=== PATIENT | male | born 1935 | race African-American/Black ===

== ENCOUNTER 2017-11-12 19:52 | Emergency (ER) | payer MEDICARE, MEDICAID ==
[~2017-11-12] VITALS: Ht 165.1 cm; Wt 70.0 kg
[~2017-11-12 19:52] MED LIST: 1-ME1LIQ PO; ACET325 PO; ALBU0.086 NEB; ALUM5LIQ PO; CALC500 PO; CARB25TA PO; CEFU1TAB18 PO; FERR324T4 PO; MELA3TAB PO; MEMA28CA PO; MILKSUS5 PO; RANI150 PO; SENN187 PO; TRAM50TA PO
[2017-11-12 20:04] VITALS: BP 136/90; PULSE 65; RESP 16; TEMP 97.5; O2SAT 100
--- NOTE | 2017-11-12 20:14 | PD ---
HPI Chief Complaint: Complaint Time Seen by Provider: 20:13 Travel History International Travel<30 days: No Contact w/Intl Traveler<30days: No Traveled to known affect area: No History of Present Illness HPI 82-year-old man with history of dementia, Parkinson's, hypertension, presents emergency department for evaluation of decreased urinary output. Patient has a Escobar catheter in place him per report from detention, he has not had any urinary output today over the course of 12 hours. Patient states he is fine. He reports no pain. He does not understand why he is here. PFSH Past Medical History Arthritis: Yes Cancer: No Dementia: Yes Endocrine: No GERD: Yes Gout: Yes Genitourinary: No Hypertension: Yes Parkinson's Disease: Yes Reproductive: No Respiratory: No Past Surgical History Abdominal Surgery: Yes (RT. INGUINAL HERNIOPLASTY) Other Surgery: Yes Social History Alcohol Use: No Tobacco Use: No Substance Use: No Allergies-Medications (Allergen,Severity, Reaction): Coded Allergies: No Known Allergies (Unverified , 09/07/15) Reported Meds & Prescriptions Reported Meds & Active Scripts Active Reported Gabapentin 600 Mg Tab 600 Mg PO TID Tramadol (Tramadol HCl) 50 Mg Tab 50 Mg PO Q4H PRN [place] (Hydrocodone-Acetaminophen) 5 Mg-325 Mg Tab 1 Tab PO Q4H PRN Zantac (Ranitidine HCl) 150 Mg Tab 150 Mg PO BID Tamsulosin (Tamsulosin HCl) 0.4 Mg Cap 0.4 Mg HS Melatonin 5 Mg Tab 5 Mg PO HS Potassium Chloride ER (Potassium Chloride) 10 Meq Cap 10 Meq PO DAILY Lasix (Furosemide) 20 Mg Tab 20 Mg PO BID Amlodipine (Amlodipine Besylate) 5 Mg Tab 5 Mg PO DAILY Vitamin D-3 (Cholecalciferol) 1,000 Unit Cap Namenda Xr (Memantine) 28 Mg Caper 28 Mg PO DAILY Allopurinol 300 Mg Tab 300 Mg PO DAILY Ferrous Sulfate 325 Mg (65 Mg Iron) Tablet 325 Mg PO BIDPC Sinemet (Carbidopa-Levodopa) 25-100 Mg Tab 1 Tab PO Q8HR Calcium Ascorbate 500 Mg Tab 500 Mg PO Milk of Magnesia Liq (Magnesium Hydroxide) 400 Mg/5 Ml Susp 15 Ml PO DAILY PRN [place] Liq (Wwywnqhb-Ppcyboqkp-Brlpepmxmlp Liq) 200-200-20 Mg/5 Ml Susp 20 Ml PO QID Take between meals or as directed. Shake well. Do not exceed 120 mL/24 hrs. Aspirin 81 Mg Chew 81 Mg CHEW DAILY Review of Systems Except as stated in HPI: all other systems reviewed are Neg Physical Exam Narrative GENERAL: Well-nourished elderly male patient, no acute distress SKIN: Focused skin assessment warm/dry. HEAD: Atraumatic. Normocephalic. EYES: Pupils equal and round. No scleral icterus. No injection or drainage. ENT: No nasal bleeding or discharge. Mucous membranes pink and moist. NECK: Trachea midline. No JVD. CARDIOVASCULAR: Regular rate and rhythm. 2/6 systolic murmur appreciated. RESPIRATORY: No accessory muscle use. Clear to auscultation. Breath sounds equal bilaterally. GASTROINTESTINAL: Abdomen soft, non-tender, nondistended. Right inguinal hernia. No guarding. No rebound tenderness. Hepatic and splenic margins not palpable. GENITOURINARY: Circumcised. Testes descended bilaterally without evidence of rotation. No lesions or erythema. Escobar catheter in place. The meatus has a large opening. Urine is leaking around this. MUSCULOSKELETAL: No obvious deformities. No clubbing. No cyanosis. No edema. NEUROLOGICAL: Awake and alert. Pleasant, oriented to self. Unable to assess cranial nerves. Patient does move all extremities without difficulty.. Normal speech. Data Data Last Documented VS Vital Signs Date Time Temp Pulse Resp B/P (MAP) Pulse Ox O2 Delivery O2 Flow Rate FiO2 11/12/17 21:48 79 16 142/81 (101) 96 Room Air 11/12/17 20:04 97.5 Orders Orders Remove Urinary Catheter .ONCE (11/12/17 20:21) Urinary Catheter Insert/Apply (11/12/17 20:21) Urinalysis - C+S If Indicated (11/12/17 20:21) Urine Culture (11/12/17 21:03) Levofloxacin (Levaquin) (11/12/17 22:15) Ed Discharge Order (11/12/17 22:09) Labs Laboratory Tests Test 11/12/17 21:03 Urine Color YELLOW Urine Turbidity HAZY Urine pH 5.0 Urine Specific [place] 1.030 Urine Protein 100 mg/dL Urine Glucose (UA) NEG mg/dL Urine Ketones TRACE mg/dL Urine Occult Blood SMALL Urine Nitrite NEG Urine Bilirubin NEG Urine Urobilinogen LESS THAN 2 mg/dL Urine Leukocyte Esterase SMALL Urine RBC 133 /hpf Urine WBC 13 /hpf Urine Bacteria OCC /hpf Urine Mucus FEW /lpf Microscopic Urinalysis Comment CATH-CULTURE IND [facility] Medical Decision Making Medical Screen Exam Complete: Yes Emergency Medical Condition: Yes Medical Record Reviewed: Yes Differential Diagnosis Urinary retention versus obstruction versus Escobar catheter malfunction versus UTI Narrative Course 82-year-old male presents emergency department for evaluation of no urinary output over 12 hours. Patient appears well. Abdomen is nondistended. He does have urine leaking around his Escobar catheter into his adult diaper. We have evaluated the Escobar catheter and is kinked. Upon straightening this, urine output is noted. Escobar catheter is replaced with 250 mL out of a cloudy yellow urine. Laboratory Tests Test 11/12/17 21:03 Urine Color YELLOW Urine Turbidity HAZY Urine pH 5.0 Urine Specific [place] 1.030 Urine Protein 100 mg/dL Urine Glucose (UA) NEG mg/dL Urine Ketones TRACE mg/dL Urine Occult Blood SMALL Urine Nitrite NEG Urine Bilirubin NEG Urine Urobilinogen LESS THAN 2 mg/dL Urine Leukocyte Esterase SMALL Urine RBC 133 /hpf Urine WBC 13 /hpf Urine Bacteria OCC /hpf Urine Mucus FEW /lpf Microscopic Urinalysis Comment CATH-CULTURE IND I discussed the patient with my attending physician. He appears well. We will start him on oral antibiotics and discharge him back to his [facility] facility. Diagnosis Primary Impression: UTI (urinary tract infection) Qualified Codes: T83.511A - Infection and inflammatory reaction due to indwelling urethral catheter, initial encounter; N39.0 - Urinary tract infection , site not specified Additional Impression: Escobar catheter problem Qualified Codes: T83.9XXA - Unspecified complication of genitourinary prosthetic device, implant and graft, initial encounter Referrals: Primary Care Physician Urologist Patient Instructions: Catheter-associated Urinary Tract Infection (ED), General Instructions Additional Instructions: Follow-up with a primary care provider Return immediately with acute worsening symptoms Med/Other Pt SpecificInfo: Prescription(s) given Scripts Cephalexin (Keflex) 500 Mg Cap 500 MG PO Q12H for Infection for 10 Days, #20 CAP 0 Refills Prov: Maryam Cabello 11/12/17 Disposition: 03 DISCHARGE TO SNF Condition: Stable Maryam Cabello Nov 12, 2017 20:14
[2017-11-12] MEDS ORDERED: TAMS0.4C4 (20:21)
[2017-11-12] MEDS ORDERED: MEMA28CA PO (20:21)
[2017-11-12] MEDS ORDERED: MILKSUS PO (20:21)
[2017-11-12] MEDS ORDERED: D31000CA3 (20:21)
[2017-11-12] MEDS ORDERED: AMLO5TAB2 PO (20:21)
[2017-11-12] MEDS ORDERED: ALLO300T2 PO (20:21)
[2017-11-12] MEDS ORDERED: MELA5 PO (20:21)
[2017-11-12] MEDS ORDERED: SINE25TA PO (20:21)
[2017-11-12] MEDS ORDERED: ASPI-516 CHEW (20:21)
[2017-11-12] MEDS ORDERED: ZANT150T2 PO (20:21)
[2017-11-12] MEDS ORDERED: TRAM50TA PO (20:21)
[2017-11-12] MEDS ORDERED: FURO1TAB62 PO (20:21)
[2017-11-12] MEDS ORDERED: POTA10CA PO (20:21)
[2017-11-12] MEDS ORDERED: NORC5TAB PO (20:21)
[2017-11-12] MEDS ORDERED: GABA600T PO (20:21)
[2017-11-12] MEDS ORDERED: ALMASUS2 PO (20:21)
[2017-11-12] MEDS ORDERED: FERR325T18 PO (20:21)
[2017-11-12] MEDS ORDERED: CALC500T37 PO (20:21)
[2017-11-12 21:23] LABS: BACTERIA, URINE OCC /hpf; BILIRUBIN, URINE NEG (NEG); BLOOD, URINE SMALL (NEG); GLUCOSE,URINE NEG (NEG); KETONE, URINE TRACE mg/dL (NEG); MUCUS URINE FEW /lpf (OCC); NITRITE,URINE NEG (NEG); URINE COLOR YELLOW (YELLW/STRAW); URINE LEUKOCYTE ESTERASE SMALL (NEG)
[2017-11-12 21:48] VITALS: BP 142/81; PULSE 79; RESP 16; O2SAT 96
[2017-11-12] MEDS ORDERED: CEPH-460 PO (22:11)
[2017-11-12] MEDS ORDERED: LEVOFLOXACIN 500 MG TAB PO ONE (22:15)
[2017-11-12] MEDS ORDERED: CEPHALEXIN MONOHYDRATE 500 MG CAP PO ONE (22:15)
== END 2017-11-13 08:43 ==
LOC: NEPE 19:52
DX: T83.511A Infection and inflammatory reaction due to indwelling urethral catheter, initial encounter (principal); G20 Parkinson's disease; F02.80 Dementia in other diseases classified elsewhere, unspecified severity, without behavioral disturbance, psychotic disturbance, mood disturbance, and anxiety; I10 Essential (primary) hypertension
CPT/HCPCS: 81001; 87077; 87086; 87186; 99283

== ENCOUNTER 2018-03-02 15:09 | Observation (INO) ==
[2018-03-02] MEDS ORDERED: Piperacil/Tazo 4.5 GM Premix 4.5 GM/100 ML BAG IV.SIG ONE (15:17)
--- NOTE | 2018-03-02 15:32 | ED ---
HPI General Chief complaint: Altered Mental Status Stated complaint: Medical Time Seen by Provider: 03/02/18 15:14 Source: old records reviewed Mode of arrival: other (Medical Transport) Limitations: altered mental status History of Present Illness HPI narrative: 82-year-old male sent here from his living facility by medical transport for evaluation of altered mental status. The patient is unable to provide any history, and the transporter also does not know any of the patient' s history. I reviewed the patient's previous charts and will try to contact his facility for further clarification of history of present illness. Chart review shows that in [address] a CT head and was diagnosed with a right frontal ventricular mass. Related Data Home Medications Medication Instructions Recorded Confirmed allopurinol 300 mg PO DAILY 03/02/18 03/02/18 amlodipine 2.5 mg PO DAILY 03/02/18 03/02/18 carbidopa-levodopa [Sinemet] 1 tab PO QID 03/02/18 03/02/18 furosemide [Lasix] 20 mg PO DAILY 03/02/18 03/02/18 gabapentin 600 mg PO TID 03/02/18 03/02/18 memantine [Namenda XR] 28 mg PO DAILY 03/02/18 03/02/18 omeprazole 10 mg PO DAILY 03/02/18 03/02/18 potassium chloride 10 meq PO DAILY 03/02/18 03/02/18 ranitidine HCl 150 mg PO DAILY 03/02/18 03/02/18 tamsulosin 0.4 mg PO DAILY 03/02/18 03/02/18 Allergies Allergy/AdvReac Type Severity Reaction Status Date / Time No Known Allergies Unknown Uncoded 11/18/17 12:43 Review of Systems ROS Unobtainable ROS Unobtainable: unobtainable due to mental status PMFSH Medical History Medical History BPH (benign prostatic hyperplasia) (Acute) Benign neoplasm of brain (Acute) GERD (gastroesophageal reflux disease) (Acute) Gout (Acute) Hypertension (Acute) Parkinson disease (Acute) Social History Social History Substance History: No History of Abuse Smoking Status: Former smoker How Often Do You Have a Drink Containing Alcohol: Never Recent Travel in [facility] within the Last 8 Weeks: No Recent Out of Country Travel within the Last 8 Weeks: No Exam Narrative Exam Narrative: GENERAL: Well-developed, well-nourished, obtunded, withdraws to painful stimuli, protecting airway, no acute distress. SKIN: Focused skin assessment warm/dry. No rash. HEAD: Atraumatic. Normocephalic. EYES: Pupils equal and round. No scleral icterus. No injection or drainage. ENT: No nasal bleeding or discharge. Mucous membranes pink and moist. NECK: Trachea midline. No JVD. No nuchal rigidity. CARDIOVASCULAR: Regular rate and rhythm. RESPIRATORY: No accessory muscle use. Clear to auscultation. Breath sounds equal bilaterally. GASTROINTESTINAL: Abdomen soft, non-tender, nondistended. MUSCULOSKELETAL: No obvious deformities. No clubbing. No cyanosis. No edema. NEUROLOGICAL: Obtunded. Moves all extremities to painful stimuli. No response to verbal stimuli. PSYCHIATRIC: Unable to assess. Course Initial Documented Vital Signs Temperature 97.1 F L 03/02/18 16:24 Pulse Rate 63 03/02/18 16:24 Respiratory Rate 22 03/02/18 16:24 Blood Pressure 165/88 H 03/02/18 16:24 Pulse Oximetry 99 03/02/18 16:24 Last Documented Vital Signs Temperature 97.1 F L 03/02/18 16:24 Pulse Rate 63 03/02/18 16:24 Respiratory Rate 22 03/02/18 16:24 Blood Pressure 142/73 H 03/02/18 18:40 Pulse Oximetry 100 03/02/18 16:24 Medical Decision Making MDM Narrative Medical decision making narrative: Vital signs reviewed. CBC and CMP are unremarkable. UA is not suggestive of UTI. Chest x-ray shows bibasilar atelectasis. 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 5:45 PM: I discussed the case with the patient's primary care physician at the long term Dr. Caicedo who sent the patient here for evaluation. He states the patient's mental status is significantly diminished from his baseline and has been going on for about 2 days. He is worried about the possibility of a CVA/ TIA and would like the patient to be admitted for further workup. The patient arrived with a signed DNR, and this status was confirmed by Dr. Caicedo. On initial arrival to the emergency department the patient withdrew to painful stimuli, however was nonverbal and did not respond to verbal stimuli. On reassessment he is more alert, opens his eyes when asked, says good when I asked how he feels. Case discussed with hospitalist Dr Perry who will admit the patient to her service. Medical Screen Exam Complete: Yes Emergency Medical Condition: Yes Differential Diagnosis Differential Diagnosis: Sepsis, pneumonia, UTI, intracranial abnormality, metabolic abnormality Medical Records Medical records reviewed: Yes I reviewed the patient's medical records. Lab Data Result diagrams: 03/02/18 15:37 03/02/18 15:37 Lab Results 03/02/18 03/02/18 03/02/18 Range/Units 15:37 15:37 15:37 WBC 3.9 L (4.0-11.0) th/mm3 RBC 4.09 L (4.50-5.90) mil/mm3 Hgb 12.9 L (13.0-17.0) gm/dL Hct 39.7 (39.0-51.0) % MCV 97.2 (80.0-100.0) fL MCH 31.6 (27.0-34.0) pg MCHC 32.5 (32.0-36.0) % RDW 15.5 (11.6-17.2) % Plt Count 258 (150-450) th/mm3 MPV 7.3 (7.0-11.0) fL Neut % (Auto) 51.6 (16.0-70.0) % Lymph % (Auto) 33.8 (9.0-44.0) % [place] % (Auto) 11.8 H (0.0-8.0) % Eos % (Auto) 1.9 (0.0-4.0) % Baso % (Auto) 0.9 (0.0-2.0) % Neut # (Auto) 2.0 (1.8-7.7) th/mm3 Lymph # (Auto) 1.3 (1.0-4.8) th/mm3 [place] # (Auto) 0.5 (0.0-0.9) th/mm3 Eos # (Auto) 0.1 (0.0-0.4) th/mm3 Baso # (Auto) 0.0 (0.0-0.2) th/mm3 WBC Differential . Differential Comment Auto diff final PT 10.8 (9.8-11.6) sec INR 1.1 Ratio APTT 26.4 (24.3-30.1) sec Puncture Site Patient Temperature O2 Saturation (90-100) % ABG pH (7.380-7.420) ABG pCO2 (38-42) mmHg ABG pO2 (61-120) mmHg ABG HCO3 (22-26) mmol/L ABG O2 Content (12.0-20.0) Vol % ABG Base Excess (-2-2) mmol/L ABG Methemoglobin (0-2) % Denzel Test Hemoglobin (12.0-16.0) G/DL Carboxyhemoglobin (0-4) % O2 Delivery Device Liter Flow L/M Critical Value Sodium 140 (136-145) meq/L Potassium 4.4 (3.5-5.1) meq/L Chloride 106 (98-107) meq/L Carbon Dioxide 26.9 (21.0-32.0) meq/L Anion Gap 7 (5-15) meq/L BUN 11 (7-18) mg/dL Creatinine 0.90 (0.60-1.30) mg/dL Estimated GFR Greater than 89 (>89) mL/min Random Glucose 86 (74-106) mg/dL Lactic Acid (0.4-2.0) mmol/L Calcium 9.3 (8.5-10.1) mg/dL Total Bilirubin 0.5 (0.2-1.0) mg/dL AST 29 (15-37) U/L ALT 17 (12-78) U/L Alkaline Phosphatase 100 (45-117) U/L Ammonia (11-32) mcmol/L Total Creatine Kinase 572 H (39-308) U/L CK-MB (CK-2) 3.9 H (0.5-3.6) ng/mL CK-MB (CK-2) % 0.7 (0.0-4.0) % Troponin I Less than 0.02 L (0.02-0.05) ng/mL Total Protein 7.8 (6.4-8.2) g/dL Albumin 3.5 (3.4-5.0) g/dL TSH (0.358-3.740) uIU/mL Urine Color (Yellw/Straw) Urine Clarity (Clear) Urine pH (5.0-8.5) Ur Specific [place] (1.002-1.035) Urine Protein (Neg-Trace) mg/dL Urine Glucose (UA) (Negative) mg/dL Urine Ketones (Negative) mg/dL Urine Occult Blood (Negative) Urine Nitrate (Negative) Urine Bilirubin (Negative) Urine Urobilinogen (Less than 2) mg/dL Ur Leukocyte Esterase (Negative) Urine RBC (0-3) /hpf Urine WBC (0-5) /hpf Urine Bacteria (None) /hpf Micro UA Comment Ur Microscopic Review Urine Culture Comments 03/02/18 03/02/18 03/02/18 Range/Units 15:37 15:37 15:37 WBC (4.0-11.0) th/mm3 RBC (4.50-5.90) mil/mm3 Hgb (13.0-17.0) gm/dL Hct (39.0-51.0) % MCV (80.0-100.0) fL MCH (27.0-34.0) pg MCHC (32.0-36.0) % RDW (11.6-17.2) % Plt Count (150-450) th/mm3 MPV (7.0-11.0) fL Neut % (Auto) (16.0-70.0) % Lymph % (Auto) (9.0-44.0) % [place] % (Auto) (0.0-8.0) % Eos % (Auto) (0.0-4.0) % Baso % (Auto) (0.0-2.0) % Neut # (Auto) (1.8-7.7) th/mm3 Lymph # (Auto) (1.0-4.8) th/mm3 [place] # (Auto) (0.0-0.9) th/mm3 Eos # (Auto) (0.0-0.4) th/mm3 Baso # (Auto) (0.0-0.2) th/mm3 WBC Differential Differential Comment PT (9.8-11.6) sec INR Ratio APTT (24.3-30.1) sec Puncture Site Patient Temperature O2 Saturation (90-100) % ABG pH (7.380-7.420) ABG pCO2 (38-42) mmHg ABG pO2 (61-120) mmHg ABG HCO3 (22-26) mmol/L ABG O2 Content (12.0-20.0) Vol % ABG Base Excess (-2-2) mmol/L ABG Methemoglobin (0-2) % Denzel Test Hemoglobin (12.0-16.0) G/DL Carboxyhemoglobin (0-4) % O2 Delivery Device Liter Flow L/M Critical Value Sodium (136-145) meq/L Potassium (3.5-5.1) meq/L Chloride (98-107) meq/L Carbon Dioxide (21.0-32.0) meq/L Anion Gap (5-15) meq/L BUN (7-18) mg/dL Creatinine (0.60-1.30) mg/dL Estimated GFR (>89) mL/min Random Glucose (74-106) mg/dL Lactic Acid 1.0 (0.4-2.0) mmol/L Calcium (8.5-10.1) mg/dL Total Bilirubin (0.2-1.0) mg/dL AST (15-37) U/L ALT (12-78) U/L Alkaline Phosphatase (45-117) U/L Ammonia (11-32) mcmol/L Total Creatine Kinase (39-308) U/L CK-MB (CK-2) (0.5-3.6) ng/mL CK-MB (CK-2) % (0.0-4.0) % Troponin I (0.02-0.05) ng/mL Total Protein (6.4-8.2) g/dL Albumin (3.4-5.0) g/dL TSH 0.820 (0.358-3.740) uIU/mL Urine Color Straw (Yellw/Straw) Urine Clarity Clear (Clear) Urine pH 7.0 (5.0-8.5) Ur Specific [place] 1.005 (1.002-1.035) Urine Protein Negative (Neg-Trace) mg/dL Urine Glucose (UA) Negative (Negative) mg/dL Urine Ketones Negative (Negative) mg/dL Urine Occult Blood Negative (Negative) Urine Nitrate Negative (Negative) Urine Bilirubin Negative (Negative) Urine Urobilinogen Less than 2 (Less than 2) mg/dL Ur Leukocyte Esterase Negative (Negative) Urine RBC 1 (0-3) /hpf Urine WBC 1 (0-5) /hpf Urine Bacteria Rare H (None) /hpf Micro UA Comment Cath-culture ind Ur Microscopic Review Not Reportable Urine Culture Comments Cath-cult indicated 03/02/18 03/02/18 Range/Units 17:38 17:58 WBC (4.0-11.0) th/mm3 RBC (4.50-5.90) mil/mm3 Hgb (13.0-17.0) gm/dL Hct (39.0-51.0) % MCV (80.0-100.0) fL MCH (27.0-34.0) pg MCHC (32.0-36.0) % RDW (11.6-17.2) % Plt Count (150-450) th/mm3 MPV (7.0-11.0) fL Neut % (Auto) (16.0-70.0) % Lymph % (Auto) (9.0-44.0) % [place] % (Auto) (0.0-8.0) % Eos % (Auto) (0.0-4.0) % Baso % (Auto) (0.0-2.0) % Neut # (Auto) (1.8-7.7) th/mm3 Lymph # (Auto) (1.0-4.8) th/mm3 [place] # (Auto) (0.0-0.9) th/mm3 Eos # (Auto) (0.0-0.4) th/mm3 Baso # (Auto) (0.0-0.2) th/mm3 WBC Differential Differential Comment PT (9.8-11.6) sec INR Ratio APTT (24.3-30.1) sec Puncture Site Right radial Patient Temperature 98.6 O2 Saturation 98 (90-100) % ABG pH 7.41 (7.380-7.420) ABG pCO2 42 (38-42) mmHg ABG pO2 134 H (61-120) mmHg ABG HCO3 26 (22-26) mmol/L ABG O2 Content 17.0 (12.0-20.0) Vol % ABG Base Excess 2.0 (-2-2) mmol/L ABG Methemoglobin 0.4 (0-2) % Denzel Test Present Hemoglobin 12.2 (12.0-16.0) G/DL Carboxyhemoglobin 0.8 (0-4) % O2 Delivery Device Nasal cannula Liter Flow 2.00 L/M Critical Value No Sodium (136-145) meq/L Potassium (3.5-5.1) meq/L Chloride (98-107) meq/L Carbon Dioxide (21.0-32.0) meq/L Anion Gap (5-15) meq/L BUN (7-18) mg/dL Creatinine (0.60-1.30) mg/dL Estimated GFR (>89) mL/min Random Glucose (74-106) mg/dL Lactic Acid (0.4-2.0) mmol/L Calcium (8.5-10.1) mg/dL Total Bilirubin (0.2-1.0) mg/dL AST (15-37) U/L ALT (12-78) U/L Alkaline Phosphatase (45-117) U/L Ammonia 20 (11-32) mcmol/L Total Creatine Kinase (39-308) U/L CK-MB (CK-2) (0.5-3.6) ng/mL CK-MB (CK-2) % (0.0-4.0) % Troponin I (0.02-0.05) ng/mL Total Protein (6.4-8.2) g/dL Albumin (3.4-5.0) g/dL TSH (0.358-3.740) uIU/mL Urine Color (Yellw/Straw) Urine Clarity (Clear) Urine pH (5.0-8.5) Ur Specific [place] (1.002-1.035) Urine Protein (Neg-Trace) mg/dL Urine Glucose (UA) (Negative) mg/dL Urine Ketones (Negative) mg/dL Urine Occult Blood (Negative) Urine Nitrate (Negative) Urine Bilirubin (Negative) Urine Urobilinogen (Less than 2) mg/dL Ur Leukocyte Esterase (Negative) Urine RBC (0-3) /hpf Urine WBC (0-5) /hpf Urine Bacteria (None) /hpf Micro UA Comment Ur Microscopic Review Urine Culture Comments Imaging Data Radiologist's impression: Chest X-Ray 03/02/18 15:14 CONCLUSION: Bibasilar densities likely atelectasis. Head CT 03/02/18 15:14 CONCLUSION: 1. 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 This was seen on previous study and likely benign. 2. Cerebral atrophy and chronic ischemic small vessel vasculopathy. . Discharge Plan Discharge Disposition Patient Disposition: 30 Still Patient Discharge Condition Condition: Stable Discharge Details Diagnosis: Altered mental status Physicians Team ED Provider: Junior Winslow Primary Care Provider: Jaren Caicedo Rxs /Orders / Referrals /Forms Prescriptions: No Action potassium chloride 10 mEq Capsule, Extended Release 10 meq PO DAILY RF: 0 gabapentin 600 mg Tablet 600 mg PO TID RF: 0 amlodipine 2.5 mg Tablet 2.5 mg PO DAILY RF: 0 omeprazole 10 mg Capsule,Delayed Release(Dr/Ec) 10 mg PO DAILY RF: 0 tamsulosin 0.4 mg Capsule 0.4 mg PO DAILY RF: 0 allopurinol 300 mg Tablet 300 mg PO DAILY RF: 0 ranitidine HCl 150 mg Capsule 150 mg PO DAILY RF: 0 furosemide [Lasix] 20 mg Tablet 20 mg PO DAILY RF: 0 carbidopa-levodopa [Sinemet] 25-100 mg Tablet 1 tab PO QID RF: 0 memantine [Namenda XR] 28 mg Capsule,Sprinkle,Er 24hr 28 mg PO DAILY RF: 0 Discharge Interventions Interventions: Vital Signs Last Done: 03/02/18 18:40 Status ED Status: With Doctor
--- NOTE | 2018-03-02 15:54 | XR ---
EXAM DATE: 03/02/2018 3:14 PM EDT AGE/SEX: 82 years / Male INDICATIONS: Short of breath. CLINICAL DATA: This is the patient's initial encounter. Patient reports that signs and symptoms have been present for 1 day and indicates a pain score of Nonresponsive. MEDICAL/SURGICAL HISTORY: Non-responsive. Non-responsive. COMPARISON: [facility] [place] CHEST SINGLE AP, 09/07/2015. . FINDINGS: A single AP view of the chest demonstrates diminished lung volumes and minimal bibasilar densities.. The cardiomediastinal contours are unremarkable. Osseous structures are intact. CONCLUSION: Bibasilar densities likely atelectasis. Electronically signed by: Larry Browning MD 03/02/2018 3:52 PM EDT
--- NOTE | 2018-03-02 15:57 | CT ---
EXAM DATE: 03/02/2018 3:20 PM EDT AGE/SEX: 82 years / Male INDICATIONS: Altered mental status. CLINICAL DATA: This is the patient's initial encounter. Patient reports that signs and symptoms have been present for 1 day and indicates a pain score of 0/10. MEDICAL/SURGICAL HISTORY: None. None. RADIATION DOSE: 56.35 CTDI (mGy) [place] [facility] [place] 05/05/2012. . TECHNIQUE: CT of the head without contrast. Using automated exposure control and adjustment of the mA and/or kV according to patient size, radiation dose was kept as low as reasonably achievable to ob tain optimal diagnostic quality images. DICOM format image data is available electronically for revi ew and comparison. FINDINGS: Cerebrum: The ventricles are prominent consistent with atrophy. Areas of low-density are seen throug hout the white matter No evidence of midline shift, hemorrhage or acute infarction. There is soft tis keith density in the right frontal horn measuring 13 mm. No extraaxial fluid collections are seen. Posterior Fossa: The cerebellum and brainstem are intact. The 4th ventricle is midline. The cerebe llopontine angle is unremarkable. Extracranial: The visualized portion of the orbits is intact. Skull: The calvaria is intact. No evidence of skull fracture. CONCLUSION: 1. 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 This was seen on previous study and likely benign. 2. Cerebral atrophy and chronic ischemic small vessel vasculopathy. . Electronically signed by: Larry Browning MD 03/02/2018 3:55 PM EDT
[2018-03-02] MEDS ORDERED: Vancomycin Inj 1 GM/200 ML PIGGYBACK IV.SIG SCH (16:00)
[2018-03-02] MEDS ORDERED: Vancomycin Inj 1,000 MG in Sodium Chlor 0.9% Inj 250 ML IV.SIG ONE (16:00)
[2018-03-02 16:12] LABS: Baso % (Auto) 0.9 % (0.0-2.0); Eos # (Auto) 0.1 th/mm3 (0.0-0.4); Eos % (Auto) 1.9 % (0.0-4.0); Hematocrit 39.7 % (39.0-51.0); Hemoglobin 12.9 gm/dL (13.0-17.0); Lymph # (Auto) 1.3 th/mm3 (1.0-4.8); Lymph % (Auto) 33.8 % (9.0-44.0); Mean Corpuscular HGB Conc 32.5 % (32.0-36.0); Mean Corpuscular Hemoglobin 31.6 pg (27.0-34.0); Mean Corpuscular Volume 97.2 fL (80.0-100.0); Mean Platelet Volume 7.3 fL (7.0-11.0); Mono # (Auto) 0.5 th/mm3 (0.0-0.9); Mono % (Auto) 11.8 % (0.0-8.0); Neut % (Auto) 51.6 % (16.0-70.0); Platelet Count 258 th/mm3 (150-450); Red Blood Count 4.09 mil/mm3 (4.50-5.90); Red Cell Distribution Width 15.5 % (11.6-17.2); White Blood Count 3.9 th/mm3 (4.0-11.0)
[2018-03-02 16:24] LABS: Bacteria,Urine Rare /hpf; Bilirubin,Urine Negative (Negative); Clarity,Urine Clear (Clear); Color,Urine Straw (Yellw/Straw); Glucose,Urine (UA) Negative (Negative); Leukocyte Esterase,Urine Negative (Negative); Nitrite,Urine Negative (Negative); Specific Gravity,Urine 1.005 (1.002-1.035)
[2018-03-02 16:25] LABS: Activated Partial Thrombo Time 26.4 sec (24.3-30.1); INR 1.1 Ratio; Prothrombin Time 10.8 sec (9.8-11.6)
[2018-03-02 16:55] LABS: Alanine Aminotransferase 17 U/L (12-78); Albumin 3.5 g/dL (3.4-5.0); Alkaline Phosphatase 100 U/L (45-117); Anion Gap 7 meq/L (5-15); Aspartate Aminotransferase 29 U/L (15-37); Blood Urea Nitrogen 11 mg/dL (7-18); Calcium 9.3 mg/dL (8.5-10.1); Carbon Dioxide 26.9 meq/L (21.0-32.0); Chloride 106 meq/L (98-107); Creatine Kinase 572 U/L (39-308); Glomerular Filtration Rate Greater Than 89 mL/min (>89); Glucose,Random 86 mg/dL (74-106); Sodium 140 meq/L (136-145); Total Protein 7.8 g/dL (6.4-8.2)
[2018-03-02 16:57] LABS: Potassium 4.4 meq/L (3.5-5.1)
[2018-03-02 17:10] LABS: CKMB Percent 0.7 % (0.0-4.0); Creatine Kinase MB 3.9 ng/mL (0.5-3.6)
[2018-03-02 17:57] LABS: ABG PCO2 42 mmHg (38-42); ABG PO2 134 mmHg (61-120)
[2018-03-02] MEDS ORDERED: Acetaminophen 325 MG Tablet PO PRN (19:59)
[2018-03-02] MEDS ORDERED: Bisacodyl 10 MG Supp RECTAL PRN (19:59)
--- NOTE | 2018-03-02 20:01 | P.HPIM ---
History of Present Illness Primary Care Physician: Jaren Caicedo MD History of Present Illness: This is an 82-year-old DNR male who was sent to the ER from SNF due to AMS. Pt unable to provide any history due to mental status. Per SNF report, pt w/ decreased mental status x2 days, Dr. Caicedo concerned w/ possible TIA/CVA per report. On exam, pt is mostly non-verbal, opens eyes to name, but not following commands, unclear how close to baseline this is. BP 165/88, HR 63, O2 sat 100% on 2L NC, Afebrile. CBC essentially unremarkable. INR 1.1. Chemistry unremarkable. CPK 572. Troponin negative. UA negative for UTI. CT Head with small mass frontal right horn, seen on previous exam and likely benign , no acute changes. CXR bibasilar densities likely atelectasis. - Diagnosis (1) Encephalopathy (2) Rhabdomyolysis (3) DNR (do not resuscitate) Review of Systems PAST FAMILY HISTORY: Unknown unobtainable due to mental status [facility] - History History Provided By: Patient - Medical History Medical History: Medical History (Last Updated 03/02/18 @ 16:26 by Zakiya Negron) BPH (benign prostatic hyperplasia) Benign neoplasm of brain GERD (gastroesophageal reflux disease) Gout Hypertension Parkinson disease - Tobacco History Tobacco Use In Past 30 Days: No Smoking Status: Former smoker - Alcohol History How Often Do You Have a Drink Containing Alcohol: Never - Substance Use History Substance History: No History of Abuse - Travel History Recent Travel in the [place] Within the Last 8 Weeks: No Recent Travel Out of the Country Within the Last 8 Weeks: No - Immunization History Tetanus Immunization: Unsure Medications and Allergies Allergies Allergy/AdvReac Type Severity Reaction Status Date / Time No Known Allergies Unknown Uncoded 11/18/17 12:43 Home Medications Medication Instructions Recorded Confirmed Type allopurinol 300 mg PO DAILY 03/02/18 03/02/18 History amlodipine 2.5 mg PO DAILY 03/02/18 03/02/18 History carbidopa-levodopa [Sinemet] 1 tab PO QID 03/02/18 03/02/18 History furosemide [Lasix] 20 mg PO DAILY 03/02/18 03/02/18 History gabapentin 600 mg PO TID 03/02/18 03/02/18 History memantine [Namenda XR] 28 mg PO DAILY 03/02/18 03/02/18 History omeprazole 10 mg PO DAILY 03/02/18 03/02/18 History potassium chloride 10 meq PO DAILY 03/02/18 03/02/18 History ranitidine HCl 150 mg PO DAILY 03/02/18 03/02/18 History tamsulosin 0.4 mg PO DAILY 03/02/18 03/02/18 History Exam Vital signs: Vital Signs 03/02/18 16:24 03/02/18 18:40 Temperature 97.1 F L Pulse Rate 63 Respiratory Rate 22 Blood Pressure 165/88 H 142/73 H Pulse Oximetry 100 Intake & Output 03/02/18 03/02/18 03/03/18 06:59 18:59 06:59 Intake Total 350 / 350 Balance 350 / 350 Weight 76.204 kg Intake: IV 350 / 350 Zosyn 4.5 GM Premix 4.5 gm In 100 / 100 100 ml @ 200 mls/hr IV.SIG ONCE ONE Rx#:[id number] Vancomycin Inj 1,000 MG In NS 250 / 250 Inj 250 ML @ 250 mls/hr IV.SIG ONCE ONE Rx#:[id number] Narrative: PE: GENERAL: Elderly black male in no acute distress. Nonverbal, opens eyes to name , not answering questions or following commands. SKIN: Focused skin assessment warm and dry. HEENT: PERRLA, EOMI. No scleral icterus or conjunctival pallor. No lid lag or facial droop. CARDIOVASCULAR: Regular rate and rhythm. No obvious murmurs to auscultation. No chest tenderness to palpation. RESPIRATORY: No obvious rhonchi or wheezing. Clear to auscultation. Breath sounds equal bilaterally. GASTROINTESTINAL: Abdomen soft, non-tender, nondistended. BS normal. MUSCULOSKELETAL: Extremities without clubbing, cyanosis, or edema. No obvious deformities. NEUROLOGICAL: Awake, opens eyes, falls asleep, not answering questions. No focal neurologic deficits. Moving both upper and lower extremities spontaneously. PSYCHIATRIC: Appropriate mood and affect. Insight and judgment normal. Results - Labs CBC & Chem 7: 03/02/18 15:37 03/02/18 15:37 Labs: Short CBC 03/02/18 Range/Units 15:37 WBC 3.9 L (4.0-11.0) th/mm3 Hgb 12.9 L (13.0-17.0) gm/dL Hct 39.7 (39.0-51.0) % Plt Count 258 (150-450) th/mm3 BMP 03/02/18 15:37 Sodium 140 Potassium 4.4 Chloride 106 Carbon Dioxide 26.9 BUN 11 Creatinine 0.90 Calcium 9.3 Cardiac Enzymes 03/02/18 Range/Units 15:37 Total Creatine Kinase 572 H (39-308) U/L CK-MB (CK-2) 3.9 H (0.5-3.6) ng/mL Troponin I Less than 0.02 L (0.02-0.05) ng/mL Liver Function 03/02/18 Range/Units 15:37 Total Bilirubin 0.5 (0.2-1.0) mg/dL AST 29 (15-37) U/L ALT 17 (12-78) U/L Alkaline Phosphatase 100 (45-117) U/L Albumin 3.5 (3.4-5.0) g/dL Urine 03/02/18 Range/Units 15:37 Urine Color Straw (Yellw/Straw) Urine Clarity Clear (Clear) Urine pH 7.0 (5.0-8.5) Ur Specific Squires 1.005 (1.002-1.035) Urine Protein Negative (Neg-Trace) mg/dL Urine Glucose (UA) Negative (Negative) mg/dL - Imaging Impressions Chest X-Ray 03/02/18 15:14 CONCLUSION: Bibasilar densities likely atelectasis. Head CT 03/02/18 15:14 CONCLUSION: 1. 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 This was seen on previous study and likely benign. 2. Cerebral atrophy and chronic ischemic small vessel vasculopathy. . Caprini VTE Risk Assessment Caprini VTE Risk Assessment: No/Low Risk (score <= 1) Caprini Risk Assessment Model: Point Value = 1 Point Value = 2 Point Value = 3 Point Value = 5 Age 41-60 Minor surgery BMI > 25 kg/m2 Swollen legs Varicose veins or History of unexplained or recurrent spontaneous Oral contraceptives or hormone replacement Sepsis (< 1 month) Serious lung disease, including pneumonia (< 1 month) Abnormal pulmonary function Acute myocardial infarction Congestive heart failure (< 1 month) History of inflammatory bowel disease Medical patient at bed rest Age 61-74 Arthroscopic surgery Major open surgery (> 45 min) Laparoscopic surgery (> 45 min) Malignancy Confined to bed (> 72 hours) Immobilizing plaster cast Central venous access Age >= 75 History of VTE Family history of VTE Factor V Leiden Prothrombin [id number] Lupus anticoagulant Anticardiolipin antibodies Elevated serum homocysteine Heparin-induced thrombocytopenia Other congenital or acquired thrombophilia Stroke (< 1 month) Elective arthroplasty Hip, pelvis, or leg fracture Acute spinal cord injury (< 1 month) Prophylaxis Regimen: Total Risk Factor Score Risk Level Prophylaxis Regimen 0-1 Low Early ambulation 2 Moderate Order ONE of the following: *Sequential Compression Device (SCD) *Heparin 5000 units SQ BID 3-4 Higher Order ONE of the following medications: *Heparin 5000 units SQ TID *Enoxaparin/Lovenox 40 mg SQ daily (WT < 150 kg, CrCl > 30 mL/min) *Enoxaparin/Lovenox 30 mg SQ daily (WT < 150 kg, CrCl > 10-29 mL/min) *Enoxaparin/Lovenox 30 mg SQ BID (WT < 150 kg, CrCl > 30 mL/min) AND/OR *Sequential Compression Device (SCD) 5 or more Highest Order ONE of the following medications: *Heparin 5000 units SQ TID (Preferred with Epidurals) *Enoxaparin/Lovenox 40 mg SQ daily (WT < 150 kg, CrCl > 30 mL/min) *Enoxaparin/Lovenox 30 mg SQ daily (WT < 150 kg, CrCl > 10-29 mL/min) *Enoxaparin/Lovenox 30 mg SQ BID (WT < 150 kg, CrCl > 30 mL/min) AND *Sequential Compression Device (SCD) Assessment and Plan - Assessment (1) Encephalopathy Code(s): G93.40 - Encephalopathy, unspecified Status: Acute (2) Rhabdomyolysis Code(s): M62.82 - Rhabdomyolysis Status: Acute (3) DNR (do not resuscitate) Code(s): Z66 - Do not resuscitate Status: Acute - Plan A/P: 1. Encephalopathy: per SNF report, pt w/ diminished mental status x2 days and physician concerned w/ TIA/CVA, baseline largely unknown. Pt non-verbal, not answering questions or following commands, noted to be lethargic on arrival. Check EEG to eval for possible seizure. U/a negative for UTI. CT Head w/ old frontal mass, no acute findings. Neuro checks. Consult Neurology as needed. Check MRI Head to eval for possible CVA. 2. Rhabdomyolysis: CPK 572, IVF for hydration, repeat CPK for trend. 3. DNR: Code status reviewed and in chart. 4. DVT Prophylaxis: SCD/Teds 5. Social work for d/c planning as needed. 6. Case discussed w/ ER physician at length, labs/records/imaging reviewed by me.
[2018-03-02] MEDS ORDERED: Sodium Chloride 0.9% 2 ML Flush PRN IV.FLUSH (20:03)
[2018-03-02 20:08] LABS: ABG Base Excess 2.1 mmol/L (-2-2); ABG PCO2 38 mmHg (38-42); ABG PO2 140 mmHg (61-120)
[2018-03-02] MEDS: Senna/Docusate Sodium 8.6/50 MG Tablet PO SCH (23:32)
[2018-03-02] MEDS: Sod Chloride 0.9% Inj 1,000 ML IV.CONT SCH (23:53)
[2018-03-02] MEDS: Sodium Chloride 0.9% 2 ML Flush BID IV.FLUSH SCH (23:53)
[2018-03-03 07:29] LABS: Baso % (Auto) 0.9 % (0.0-2.0); Eos # (Auto) 0.1 th/mm3 (0.0-0.4); Eos % (Auto) 2.2 % (0.0-4.0); Hematocrit 37.9 % (39.0-51.0); Hemoglobin 12.5 gm/dL (13.0-17.0); Lymph # (Auto) 1.2 th/mm3 (1.0-4.8); Lymph % (Auto) 27.9 % (9.0-44.0); Mean Corpuscular HGB Conc 32.9 % (32.0-36.0); Mean Corpuscular Hemoglobin 31.7 pg (27.0-34.0); Mean Corpuscular Volume 96.3 fL (80.0-100.0); Mean Platelet Volume 7.4 fL (7.0-11.0); Mono # (Auto) 0.5 th/mm3 (0.0-0.9); Mono % (Auto) 12.5 % (0.0-8.0); Neut # (Auto) 2.5 th/mm3 (1.8-7.7); Neut % (Auto) 56.5 % (16.0-70.0); Platelet Count 249 th/mm3 (150-450); Red Blood Count 3.94 mil/mm3 (4.50-5.90); Red Cell Distribution Width 15.2 % (11.6-17.2); White Blood Count 4.4 th/mm3 (4.0-11.0)
[2018-03-03] MEDS: Sod Chloride 0.9% Inj 1,000 ML IV.CONT SCH ×4 (07:30→23:06)
[2018-03-03 08:01] LABS: Alanine Aminotransferase 10 U/L (12-78); Albumin 3.4 g/dL (3.4-5.0); Alkaline Phosphatase 87 U/L (45-117); Anion Gap 8 meq/L (5-15); Aspartate Aminotransferase 22 U/L (15-37); Blood Urea Nitrogen 9 mg/dL (7-18); Calcium 8.7 mg/dL (8.5-10.1); Carbon Dioxide 28.1 meq/L (21.0-32.0); Chloride 103 meq/L (98-107); Creatine Kinase 450 U/L (39-308); Glomerular Filtration Rate 87 mL/min (>89); Glucose,Random 72 mg/dL (74-106); Potassium 3.3 meq/L (3.5-5.1); Sodium 139 meq/L (136-145); Total Protein 7.4 g/dL (6.4-8.2)
[2018-03-03 08:23] LABS: CKMB Percent 0.8 % (0.0-4.0); Creatine Kinase MB 3.4 ng/mL (0.5-3.6)
[2018-03-03] MEDS: Senna/Docusate Sodium 8.6/50 MG Tablet PO SCH ×2 (09:30→22:01)
[2018-03-03] MEDS: Sodium Chloride 0.9% 2 ML Flush BID IV.FLUSH SCH ×2 (09:31→22:02)
[2018-03-03] MEDS ORDERED: Gadobutrol PF 7.5 MMOL/7.5 ML Vial (for RAD) IV.SIG ONE (12:44)
--- NOTE | 2018-03-03 13:40 | MR ---
EXAM DATE: 03/03/2018 10:40 AM EDT AGE/SEX: 82 years / Male INDICATIONS: Altered mental status. Abnormal CT. CLINICAL DATA: This is the patient's initial encounter. Patient reports that signs and symptoms have been present for 1 day and indicates a pain score of 0/10. MEDICAL/SURGICAL HISTORY: Hypertension. Parkinson's disease. Brain neoplasm. BPH. Non-respon sive. COMPARISON: No prior exams available for comparison. TECHNIQUE: Multiplanar, multisequence examination of the brain was performed without and with 7.5 ml Gadavist (gadobutrol) contrast as a single exam dose. FINDINGS: Extensive motion artifact is present. Small mass like density seen in the right frontal horn is poorl y seen. This has been described by MRI previously 05/06/2012 and would appear to be stable in size wh en comparing to the report. Marked central and cortical atrophy There is no parenchymal hemorrhage evident. There are no extra-axial fluid collections appreciated. Posterior fossa is unremarkable. CONCLUSION: 1. Exam severely compromised by motion artifact. Intraventricular mass is again present probably unc hanged. 2. Subtle hemorrhage or other enhancement cannot be excluded given the significant motion. Repeat MR I would be of benefit with the patient's clinically stable. Electronically signed by: Magnus Anderson MD 03/03/2018 1:39 PM EDT
--- NOTE | 2018-03-03 18:17 | P.PN ---
Subjective Interval history: Patient is seen sitting up in bed. He answers yes when I asked him if he feels okay. Nurse reports that he is verbal but mostly for simple things like asking for water. Unable to stand or move around without considerable assistance. Very poor historian. Physical Exam Vital signs: Vital Signs 03/02/18 18:40 03/03/18 00:00 03/03/18 01:35 Temperature 98.7 F Pulse Rate 72 Respiratory Rate 14 Blood Pressure 142/73 H 141/82 H Pulse Oximetry 99 98 03/03/18 04:00 03/03/18 07:13 03/03/18 12:00 Temperature 98.6 F 99.4 F 98.9 F Pulse Rate 76 72 71 Respiratory Rate 14 16 18 Blood Pressure 154/73 H 160/88 H 125/71 Pulse Oximetry 100 99 99 03/03/18 14:37 03/03/18 16:00 Temperature 98.6 F Pulse Rate 79 Respiratory Rate 16 Blood Pressure 167/88 H Pulse Oximetry 100 100 Intake & Output 03/02/18 03/03/18 03/03/18 18:59 06:59 18:59 Intake Total 350 / 350 1517 / 1517 Output Total 550 / 550 Balance 350 / 350 -550 / -550 1517 / 1517 Weight 76.204 kg Intake: IV 350 / 350 1159 / 1159 NS Inj 1,000 ML @ 100 mls/hr IV 1159 / 1159 .CONT .Q10H [facility] Rx#:[id number] Zosyn 4.5 GM Premix 4.5 gm In 100 / 100 100 ml @ 200 mls/hr IV.SIG ONCE ONE Rx#:[id number] Vancomycin Inj 1,000 MG In NS 250 / 250 Inj 250 ML @ 250 mls/hr IV.SIG ONCE ONE Rx#:[id number] Oral 358 / 358 Output: Urine Amount (Catheter) 550 / 550 Condom 550 / 550 Other: Date of Last Bowel Movement 03/03/18 Narrative: GENERAL: Elderly black male in no acute distress. SKIN: Focused skin assessment warm and dry. HEENT: PERRLA, EOMI. No scleral icterus or conjunctival pallor. No lid lag or facial droop. CARDIOVASCULAR: Regular rate and rhythm. No obvious murmurs to auscultation. No chest tenderness to palpation. RESPIRATORY: No obvious rhonchi or wheezing. Clear to auscultation. Breath sounds equal bilaterally. GASTROINTESTINAL: Abdomen soft, non-tender, nondistended. BS normal. MUSCULOSKELETAL: Extremities without clubbing, cyanosis, or edema. No obvious deformities. Moving both upper and lower extremities spontaneously but unable to stand. NEUROLOGICAL: Awake and alert. PSYCHIATRIC: Very poor historian. Call. - Urinary Catheter Management Condom Cath placed during this visit: no Results - Labs CBC & Chem 7: 03/03/18 06:38 03/03/18 06:38 Laboratory Results - last 24 hr 03/02/18 03/02/18 03/03/18 17:58 19:50 06:38 WBC 4.4 RBC 3.94 L Hgb 12.5 L Hct 37.9 L MCV 96.3 MCH 31.7 MCHC 32.9 RDW 15.2 Plt Count 249 MPV 7.4 Neut % (Auto) 56.5 Lymph % (Auto) 27.9 [place] % (Auto) 12.5 H Eos % (Auto) 2.2 Baso % (Auto) 0.9 Neut # (Auto) 2.5 Lymph # (Auto) 1.2 [place] # (Auto) 0.5 Eos # (Auto) 0.1 Baso # (Auto) 0.0 WBC Differential . Differential Comment Auto diff final Patient Temperature 98.6 O2 Saturation 98 ABG pH 7.44 H ABG pCO2 38 ABG pO2 140 H ABG HCO3 26 ABG O2 Content 18.0 ABG Base Excess 2.1 H ABG Methemoglobin 0.4 Hemoglobin 12.9 Carboxyhemoglobin 0.8 Sodium Potassium Chloride Carbon Dioxide Anion Gap BUN Creatinine Estimated GFR Random Glucose Calcium Total Bilirubin AST ALT Alkaline Phosphatase Ammonia 20 Total Creatine Kinase CK-MB (CK-2) CK-MB (CK-2) % Total Protein Albumin 03/03/18 06:38 WBC RBC Hgb Hct MCV MCH MCHC RDW Plt Count MPV Neut % (Auto) Lymph % (Auto) [place] % (Auto) Eos % (Auto) Baso % (Auto) Neut # (Auto) Lymph # (Auto) [place] # (Auto) Eos # (Auto) Baso # (Auto) WBC Differential Differential Comment Patient Temperature O2 Saturation ABG pH ABG pCO2 ABG pO2 ABG HCO3 ABG O2 Content ABG Base Excess ABG Methemoglobin Hemoglobin Carboxyhemoglobin Sodium 139 Potassium 3.3 L D Chloride 103 Carbon Dioxide 28.1 Anion Gap 8 BUN 9 Creatinine 1.00 Estimated GFR 87 L Random Glucose 72 L Calcium 8.7 Total Bilirubin 0.8 AST 22 ALT 10 L Alkaline Phosphatase 87 Ammonia Total Creatine Kinase 450 H CK-MB (CK-2) 3.4 CK-MB (CK-2) % 0.8 Total Protein 7.4 Albumin 3.4 Microbiology 03/02/18 15:37 Blood - Peripheral Aerobic Blood Culture - Preliminary No growth in 1 day 03/02/18 15:37 Blood - Peripheral Anaerobic Blood Culture - Preliminary No growth in 1 day 03/02/18 15:37 Blood - Peripheral Aerobic Blood Culture - Preliminary No growth in 1 day 03/02/18 15:37 Blood - Peripheral Anaerobic Blood Culture - Preliminary No growth in 1 day - Imaging Impressions Head MRI 03/03/18 07:04 CONCLUSION: 1. Exam severely compromised by motion artifact. 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 2. Subtle hemorrhage or other enhancement cannot be excluded given the significant motion. Repeat MRI would be of benefit with the patient's clinically stable. Assessment and Plan - Assessment (1) Encephalopathy Code(s): G93.40 - Encephalopathy, unspecified Status: Acute (2) Rhabdomyolysis Code(s): M62.82 - Rhabdomyolysis Status: Acute (3) DNR (do not resuscitate) Code(s): Z66 - Do not resuscitate Status: Acute - Plan A/P: Encephalopathy: per SNF report, pt w/ diminished mental status x2 days and physician concerned w/ TIA/CVA, baseline largely unknown. -Check EEG to eval for possible seizure. -U/a negative for UTI. -CT Head w/ old frontal mass, no acute findings. -Consult Neurology as needed. -Check MRI Head to eval for possible CVA. Rhabdomyolysis: CPK 572 - IVF for hydration, repeat CPK for trend. DNR: Code status reviewed and in chart. DVT Prophylaxis: SCD/Teds Discharge planning: Likely return to SNF
--- NOTE | 2018-03-03 18:22 | MG ---
cc: Ana Sandhu MD,Fabiola ASIF ELECTROENCEPHALOGRAM NUMBER: [id number] REFERRING PHYSICIAN: Fabiola Perry MD CLINICAL HISTORY: In room H86 with photic stimulation, awake. CT showed a small mass in the frontal horn, right lateral measuring 13 mm seen on previous study. Admitted for change in mental status. Nonverbal, not following commands. History of benign neoplasm of the brain and Parkinson disease, on Sinemet. DESCRIPTION OF RECORD: Overall background slowing predominantly of 2-3 Hz delta slowing. Hyperventilation was encouraged it states here, but then in the initial part, it says was omitted. It looks like it was not done. There is lot of eye movement artifact, tremors from the patient's Parkinson disease. No epileptic activity. Photic stimulation with minimal driving response, if at all. IMPRESSION: Abnormal electroencephalogram due to moderate slowing of the background consistent with what looks like an encephalopathic process. No evidence of any seizure-like activity. MD HAIRKA Camacho/ebenezer , 05:15 PM , 05:19 PM
[2018-03-04] MEDS: Sod Chloride 0.9% Inj 1,000 ML IV.CONT SCH ×3 (05:35→13:42)
[2018-03-04] MEDS: Sodium Chloride 0.9% 2 ML Flush BID IV.FLUSH SCH (08:33)
[2018-03-04] MEDS: Senna/Docusate Sodium 8.6/50 MG Tablet PO SCH (08:34)
[2018-03-04 08:40] VITALS: O2SAT 100
--- NOTE | 2018-03-04 11:35 | P.PN ---
Subjective Interval history: Patient is seen sitting up in bed eating breakfast with assistance of WELFARE ADVISER. He tells me he is doing well. Denies complaints. Nursing reports no adverse events overnight. Physical Exam Vital signs: Vital Signs 03/03/18 12:00 03/03/18 14:37 03/03/18 16:00 Temperature 98.9 F 98.6 F Pulse Rate 71 79 Respiratory Rate 18 16 Blood Pressure 125/71 167/88 H Pulse Oximetry 99 100 100 03/03/18 19:34 03/04/18 00:00 03/04/18 04:00 Temperature 98.9 F 98.0 F 98.6 F Pulse Rate 75 95 H 65 Respiratory Rate 18 19 19 Blood Pressure 127/78 155/89 H 149/82 H Pulse Oximetry 99 100 999 H 03/04/18 06:35 03/04/18 07:30 03/04/18 08:00 Temperature 98.3 F Pulse Rate 68 Respiratory Rate 14 Blood Pressure 165/90 H Pulse Oximetry 99 96 100 Intake & Output 03/03/18 03/04/18 03/04/18 18:59 06:59 18:59 Intake Total 1517 / 1517 841 / 841 1000 / 1000 Output Total 2450 / 2450 Balance 1517 / 1517 841 / 841 -1450 / -1450 Intake: IV 1159 / 1159 841 / 841 1000 / 1000 NS Inj 1,000 ML @ 100 mls/hr IV 1159 / 1159 841 / 841 1000 / 1000 .CONT .Q10H [facility] Rx#:[id number] Oral 358 / 358 Output: Urine Amount (Catheter) 2450 / 2450 Condom 2450 / 2450 Other: Date of Last Bowel Movement 03/03/18 03/03/18 03/04/18 # Bowel Movements 1 Narrative: GENERAL: Elderly black male in no acute distress. SKIN: Focused skin assessment warm and dry. HEENT: PERRLA, EOMI. No scleral icterus or conjunctival pallor. No lid lag or facial droop. CARDIOVASCULAR: Regular rate and rhythm. No obvious murmurs to auscultation. No chest tenderness to palpation. RESPIRATORY: No obvious rhonchi or wheezing. Clear to auscultation. Breath sounds equal bilaterally. GASTROINTESTINAL: Abdomen soft, non-tender, nondistended. BS normal. MUSCULOSKELETAL: Extremities without clubbing, cyanosis, or edema. No obvious deformities. Moving both upper and lower extremities spontaneously but unable to stand. NEUROLOGICAL: Awake and alert. PSYCHIATRIC: Very poor historian. - Urinary Catheter Management Condom Cath placed during this visit: no Results - Labs CBC & Chem 7: 03/03/18 06:38 03/03/18 06:38 Microbiology 03/02/18 15:37 Blood - Peripheral Aerobic Blood Culture - Preliminary No growth in 2 days 03/02/18 15:37 Blood - Peripheral Anaerobic Blood Culture - Preliminary No growth in 2 days 03/02/18 15:37 Blood - Peripheral Aerobic Blood Culture - Preliminary No growth in 2 days 03/02/18 15:37 Blood - Peripheral Anaerobic Blood Culture - Preliminary No growth in 2 days 03/02/18 15:37 Catheterized Urine Urine Culture - Final Escherichia coli - Imaging Impressions Head MRI 03/03/18 07:04 CONCLUSION: 1. Exam severely compromised by motion artifact. 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 2. Subtle hemorrhage or other enhancement cannot be excluded given the significant motion. Repeat MRI would be of benefit with the patient's clinically stable. Assessment and Plan - Assessment (1) Encephalopathy Code(s): G93.40 - Encephalopathy, unspecified Status: Acute (2) Rhabdomyolysis Code(s): M62.82 - Rhabdomyolysis Status: Acute (3) DNR (do not resuscitate) Code(s): Z66 - Do not resuscitate Status: Acute (4) UTI (urinary tract infection) Code(s): N39.0 - Urinary tract infection, site not specified Status: Acute - Plan A/P: Encephalopathy: per SNF report, pt w/ diminished mental status x2 days and physician concerned w/ TIA/CVA, baseline largely unknown. -Check EEG to eval for possible seizure. -CT Head w/ old frontal mass, no acute findings. MRI negative for acute findings. EEG shows encephalopathy but no seizure activity. Rhabdomyolysis: CPK 572 - IVF for hydration, repeat CPK for trend. -Improving Urinary tract infection -Likely cause of AMS -U/a initially negative negative for UTI; now positive for Klebsiella. Resistant to Bactrim and Cipro so will start Augmentin. DNR: Code status reviewed and in chart. DVT Prophylaxis: SCD/Teds Discharge planning: Can return to SNF today with oral antibiotic therapy
--- NOTE | 2018-03-04 11:44 | P.DS ---
Date of admission: 03/02/18 19:58 Primary care physician: Jaren Caicedo MD Attending physician on discharge: Nolvia Hull Anticipated date of discharge: 03/04/18 Brief History from admission: This is an 82-year-old DNR male who was sent to the ER from SNF due to AMS. Pt unable to provide any history due to mental status. Per SNF report, pt w/ decreased mental status x2 days, Dr. Caicedo concerned w/ possible TIA/CVA per report. On exam, pt is mostly non-verbal, opens eyes to name, but not following commands, unclear how close to baseline this is. BP 165/88, HR 63, O2 sat 100% on 2L NC, Afebrile. CBC essentially unremarkable. INR 1.1. Chemistry unremarkable. CPK 572. Troponin negative. UA negative for UTI. CT Head with small mass frontal right horn, seen on previous exam and likely benign , no acute changes. CXR bibasilar densities likely atelectasis. DS: Diagnosis - Discharge Diagnosis (1) Encephalopathy Status: Resolved (2) Rhabdomyolysis Status: Resolved (3) DNR (do not resuscitate) Status: Chronic (4) UTI (urinary tract infection) Status: Acute DS: Medications - Discharge Medications Prescriptions: amoxicillin-pot clavulanate 1 tab PO Q12HR #10 tab DS: Summary Hospital Course: Patient is an 82-year-old -[place] male who lives at a local SNF. Presented to the emergency room after several days of-facility reported decreased mental status and there was concern for possible TIA/CVA. Brain imaging did not indicate any acute process. Once again noted known mass. EEG did not indicate seizure activity. All imaging and testing somewhat degraded by patient's Parkinson's which caused motion artifact. Mild rhabdomyolysis and dehydration which improved with IVF. Encephalopathy generally resolved and patient returned to what is thought to be his baseline. Urinalysis indicated Klebsiella positive UTI which was resistant to both Bactrim and Cipro. Patient started on Augmentin and return to facility. - Time Spent with Patient Total time spent providing and/or coordinating discharge services: Less than 30 minutes - Quality: VTE Deep Vein Thrombosis/Pulmonary Embolism Present on Admission: No Exam Vital signs: Vital Signs 03/03/18 12:00 03/03/18 14:37 03/03/18 16:00 Temperature 98.9 F 98.6 F Pulse Rate 71 79 Respiratory Rate 18 16 Blood Pressure 125/71 167/88 H Pulse Oximetry 99 100 100 03/03/18 19:34 03/04/18 00:00 03/04/18 04:00 Temperature 98.9 F 98.0 F 98.6 F Pulse Rate 75 95 H 65 Respiratory Rate 18 19 19 Blood Pressure 127/78 155/89 H 149/82 H Pulse Oximetry 99 100 999 H 03/04/18 06:35 03/04/18 07:30 03/04/18 08:00 Temperature 98.3 F Pulse Rate 68 Respiratory Rate 14 Blood Pressure 165/90 H Pulse Oximetry 99 96 100 Intake & Output 03/03/18 03/04/18 03/04/18 18:59 06:59 18:59 Intake Total 1517 / 1517 841 / 841 1000 / 1000 Output Total 2450 / 2450 Balance 1517 / 1517 841 / 841 -1450 / -1450 Intake: IV 1159 / 1159 841 / 841 1000 / 1000 NS Inj 1,000 ML @ 100 mls/hr IV 1159 / 1159 841 / 841 1000 / 1000 .CONT .Q10H BEST Rx#:[id number] Oral 358 / 358 Output: Urine Amount (Catheter) 2450 / 2450 Condom 2450 / 2450 Other: Date of Last Bowel Movement 03/03/18 03/03/18 03/04/18 # Bowel Movements 1 Narrative: GENERAL: Elderly black male in no acute distress. SKIN: Focused skin assessment warm and dry. HEENT: PERRLA, EOMI. No scleral icterus or conjunctival pallor. No lid lag or facial droop. CARDIOVASCULAR: Regular rate and rhythm. No obvious murmurs to auscultation. No chest tenderness to palpation. RESPIRATORY: No obvious rhonchi or wheezing. Clear to auscultation. Breath sounds equal bilaterally. GASTROINTESTINAL: Abdomen soft, non-tender, nondistended. BS normal. MUSCULOSKELETAL: Extremities without clubbing, cyanosis, or edema. No obvious deformities. Moving both upper and lower extremities spontaneously but unable to stand. NEUROLOGICAL: Awake and alert. PSYCHIATRIC: Very poor historian. Results Procedures completed during hospitalization: none Labs on day of discharge: Preliminary micro results at discharge 03/02/18 15:37 Aerobic Blood Culture - Preliminary Blood - Peripheral No growth in 2 days Anaerobic Blood Culture - Preliminary No growth in 2 days 03/02/18 15:37 Aerobic Blood Culture - Preliminary Blood - Peripheral No growth in 2 days Anaerobic Blood Culture - Preliminary No growth in 2 days - Impressions ITS Impressions Chest X-Ray 03/02/18 15:14 CONCLUSION: Bibasilar densities likely atelectasis. Head CT 03/02/18 15:14 CONCLUSION: 1. 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 This was seen on previous study and likely benign. 2. Cerebral atrophy and chronic ischemic small vessel vasculopathy. . Head MRI 03/03/18 07:04 CONCLUSION: 1. Exam severely compromised by motion artifact. 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 2. Subtle hemorrhage or other enhancement cannot be excluded given the significant motion. Repeat MRI would be of benefit with the patient's clinically stable. Discharge Plan - Discharge Disposition Patient Disposition: 03 Discharge to SNF - Discharge Condition Condition: Stable - Discharge Order Discharge Orders: Discharge Order (Routine); Ordered 03/04/18 Ordered By: Megan Henderson - Physicians Team Primary Care Provider: Jaren Caicedo Attending Provider: Nolvia Hull Other Providers: [facility]
[2018-03-04] MEDS ORDERED: Amoxicillin/Clavulanate 875/125 MG Tablet PO SCH (12:00)
[2018-03-04 12:12] VITALS: BP 143/79; PULSE 64; RESP 16; TEMP 98.2
== END 2018-03-04 15:53 ==
LOC: NEDA 15:09 → NEPE 15:09 → NEDA 22:09 → NEPHCDU 22:22 → UNDODISOB 03-04 13:15
PROVIDERS: ADMIT Internal Medicine; ATTEND Internal Medicine
DX: K21.9 Gastro-esophageal reflux disease without esophagitis; G93.40 Encephalopathy, unspecified; Z66 Do not resuscitate; G20 Parkinson's disease; M62.82 Rhabdomyolysis; Z87.891 Personal history of nicotine dependence; E86.0 Dehydration; J98.11 Atelectasis; M10.9 Gout, unspecified; N39.0 Urinary tract infection, site not specified; I10 Essential (primary) hypertension; N40.0 Benign prostatic hyperplasia without lower urinary tract symptoms; D33.2 Benign neoplasm of brain, unspecified